=== PATIENT | male | born 1970 | race American Indian/Alaskan Native ===

== ENCOUNTER 2020-04-01 22:00 | Emergency (ER) | payer OTHER | END 2020-04-01 22:10 | disposition left against medical advice (07) | LOC: ED 22:00 | DX: Z53.21 Procedure and treatment not carried out due to patient leaving prior to being seen by health care provider (principal) ==

== ENCOUNTER 2020-04-03 16:31 | Emergency (ER) | payer OTHER ==
[2020-04-03 16:49] VITALS: BP 153/99
--- NOTE | 2020-04-03 17:34 | Emergency Department Report ---
ED Chest Pain HPI - General Chief Complaint: Chest Pain Stated Complaint: CHEST WALL PAIN [id number] Source: patient Mode of arrival: Ambulatory Limitations: No Limitations - History of Present Illness Initial Comments: 49-year-old -Malag[place] male presents to the emergency room complaining of intermittent chest pain for 5 days along with shortness of breath. Patient states that he has has a little bit of pain to his chest. Patient denies any alleviating or aggravating factors. Patient denies any fever chills no nausea no vomiting no diarrhea no loss of taste or smell. Patient denies any trauma. Patient denies any mental health issues such as schizophrenia depression or bipolar. Patient states he does not take any medication and does not have a primary care provider. Patient reports his severity on a scale of 0-10 as 3. Patient thinks his chest discomfort is secondary to smoking cigarettes. Patient smoked a cigarette just prior to triage. MD Complaint: chest pain Onset/Timin -: days(s) Pain Location: substernal, right chest - Related Data Allergies Allergy/AdvReac Type Severity Reaction Status Date / Time No Known Allergies Allergy Unverified 04/03/20 16:46 Heart Score - HEART Score History: Slightly suspicious EKG: Normal Age: 45-65 Risk factors: 1-2 risk factors Troponin: < normal limit HEART Score: 2 ED Review of Systems ROS: Stated complaint: CHEST WALL PAIN [id number] Other details as noted in HPI Comment: All other systems reviewed and negative ED Past Medical Hx - Past Medical History Previous Medical History?: No - Surgical History Past Surgical History?: No - Social History Smoking Status: Current Every Day Smoker Substance Use Type: Alcohol ED Physical Exam - General Limitations: No Limitations General appearance: alert, in no apparent distress - Head Head exam: Present: atraumatic, normocephalic - Eye Eye exam: Present: normal appearance - ENT ENT exam: Present: mucous membranes moist - Neck Neck exam: Present: normal inspection, full ROM - Respiratory Respiratory exam: Present: normal lung sounds bilaterally. Absent: accessory muscle use - Cardiovascular Cardiovascular Exam: Present: tachycardia - GI/Abdominal GI/Abdominal exam: Present: soft, normal bowel sounds - Extremities Exam Extremities exam: Present: normal inspection. Absent: pedal edema - Back Exam Back exam: Present: normal inspection - Neurological Exam Neurological exam: Present: alert, oriented X3, normal gait - Psychiatric Psychiatric exam: Present: normal affect, normal mood - Skin Skin exam: Present: warm, dry, intact, normal color. Absent: rash ED Course Vital Signs 04/03/20 04/03/20 16:46 17:36 Temperature 99.9 F H Pulse Rate 113 H 97 H Respiratory 18 Rate Blood Pressure 153/99 O2 Sat by Pulse 97 100 Oximetry ROBBY score - Robby Score Age > 65: (0) No Aspirin use within the Past 7 Days: (0) No 3 or more CAD Risk Factors: (0) No 2 or more Angina events in past 24 hrs: (0) No Known CAD with more than 50% Stenosis: (0) No Elevated Cardiac Markers: (0) No ST Deviation Greater than 0.5mm: (0) No ROBBY Score: 0 ED Medical Decision Making - Lab Data Result diagrams: 04/03/20 18:09 04/03/20 18:09 - Radiology Data Radiology results: report reviewed Patient: MER GILMORE MR# : [id number] : 1970 Acct:[id number] Age/Sex: 49 / M ADM Date: 04/03/20 Loc: ED Attending Dr: Ordering Physician: SIMIN GARCIA Date of Service: 04/03/20 Procedure(s): XR chest routine 2V Accession Number(s): [id number] cc: SIMIN GARCIA Fluoro Time In Minutes: CHEST PA AND LATERAL VIEWS INDICATION: CHEST PAIN. COMPARISON: None FINDINGS: Support devices: None Heart: Normal Lungs/Pleura: No acute pulmonary or pleural findings. IMPRESSION: 1. No significant abnormality. Signer Name: Roel Diane MD Signed: 04/03/2020 6:04 PM Workstation Name: [id number] Transcribed By: TM Dictated By: Roel Diane MD Electronically Authenticated By: Roel Diane MD Signed Date/Time: 04/03/201803 DD/ 02 TD/TT: - Medical Decision Making 49-year-old -Malagasy male presents to the emergency room complaining of intermittent chest pain for 5 days along with shortness of breath. Patient states that he has has a little bit of pain to his chest. Patient denies any alleviating or aggravating factors. Patient denies any fever chills no nausea no vomiting no diarrhea no loss of taste or smell. Patient denies any trauma. Patient denies any mental health issues such as schizophrenia depression or bipolar. Patient states he does not take any medication and does not have a primary care provider. Patient reports his severity on a scale of 1-10 as 3.Patient thinks his chest discomfort is secondary to smoking cigarettes. Patient smoked a cigarette just prior to triage.. Critical care attestation.: If time is entered above; I have spent that time in minutes in the direct care of this critically ill patient, excluding procedure time. ED Disposition Clinical Impression: Chest pain Qualifiers: Chest pain type: unspecified Qualified Code(s): R07.9 - Chest pain, unspecified Disposition: ELOPED Is pt being admited?: No Does the pt Need Aspirin: No Condition: Stable Instructions: Nonspecific Chest Pain, Adult, Chest Pain (ED)
--- NOTE | 2020-04-03 18:08 | XRay Report ---
CHEST PA AND LATERAL VIEWS INDICATION: CHEST PAIN. COMPARISON: None FINDINGS: Support devices: None Heart: Normal Lungs/Pleura: No acute pulmonary or pleural findings. IMPRESSION: 1. No significant abnormality. Signer Name: Roel Diane MD Signed: 04/03/2020 6:04 PM Workstation Name: [id number]
[2020-04-03 18:32] LABS: Basophils % (Auto) 0.6 % (0.0-1.8); Eosinophils % (Auto) 0.2 % (0.0-4.3); Hematocrit 44.5 % (35.5-45.6); Lymphocytes # (Auto) 2.1 K/mm3 (1.2-5.4); Lymphocytes % (Auto) 30.5 % (13.4-35.0); Mean Corpuscular HGB Conc 34 % (32-34); Mean Corpuscular Volume 92 fl (84-94); Monocytes # (Auto) 0.5 K/mm3 (0.0-0.8); Monocytes % (Auto) 7.4 % (0.0-7.3); Red Blood Count 4.84 M/mm3 (3.65-5.03); Red Cell Distribution Width 12.6 % (13.2-15.2)
[2020-04-03 18:48] LABS: Alanine Aminotransferase 35 units/L (7-56); BUN/Creatinine Ratio 15; Blood Urea Nitrogen 12 mg/dL (9-20); Calcium 9.6 mg/dL (8.4-10.2); Hemolysis Index 11
[2020-04-03] MEDS ORDERED: POTASSIUM CHLORIDE ER 20 MEQ TAB PO ONE (19:26)
[2020-04-03 19:30] LABS: Platelet Count 116 K/mm3 (140-440)
== END 2020-04-03 21:05 | disposition left against medical advice (07) ==
LOC: ED 16:31
DX: R07.89 Other chest pain (principal); R06.02 Shortness of breath; F17.200 Nicotine dependence, unspecified, uncomplicated
CPT/HCPCS: 36415; 71046; 80053; 84484; 85025; 93005; 93010

== ENCOUNTER 2020-04-22 09:41 | Emergency (ER) | payer OTHER ==
[2020-04-22] MEDS ORDERED: SODIUM CHLORIDE 0.9% 1000 ML 1,000 ML IV ONE (09:45)
--- NOTE | 2020-04-22 09:51 | Emergency Department Report ---
ED Altered Mental Status HPI - General Stated Complaint: UNRESPONSIVE PUI?: No Time Seen by Provider: 04/22/20 09:42 Source: patient, EMS Mode of arrival: Ambulatory Limitations: No Limitations - History of Present Illness Initial Comments: CC: altered mental status hPI: This is s 49 yo male with hx of bipolar disorder and schizophrenia who presents with decreased level of responsiveness. Patient was normal last evening according to relatives at home. EMS found patient to be unconscious but breathing spontaneously. Once patient was loaded into the ambulance, patient awakened and stated that he had chest pain. Patient had normal blood glucose. Only medications sertraline and omeprazole. Patient does answer yes/no questions. He was able to tell me that his name is Varghese. He currently appears depressed but appropriate. I attempted to speak with mother per phone for additional information. I was unable to contact mother. Complaint: decreased responsiveness -: This morning Severity: mild Consistency of Symptoms: waxing and waning Context: unknown Associated Symptoms: chest pain - Related Data Home Medications Medication Instructions Recorded Confirmed Last Taken ARIPiprazole [Abilify] 15 mg PO DAILY 04/22/20 04/22/20 Unknown Sertraline [Zoloft] 50 mg PO QDAY 04/22/20 04/22/20 Unknown Allergies Allergy/AdvReac Type Severity Reaction Status Date / Time No Known Allergies Allergy Verified 04/22/20 09:55 ED Review of Systems ROS: Stated complaint: UNRESPONSIVE Other details as noted in HPI Comment: All other systems reviewed and negative Constitutional: denies: fever Respiratory: denies: cough, shortness of breath Cardiovascular: chest pain Gastrointestinal: denies: abdominal pain, nausea, vomiting Psychiatric: depression ED Past Medical Hx - Past Medical History Previous Medical History?: Yes Additional medical history: Bipolar disorder, schizophrenia - Medications Home Medications: Home Medications Medication Instructions Recorded Confirmed Last Taken Type ARIPiprazole [Abilify] 15 mg PO DAILY 04/22/20 04/22/20 Unknown History Sertraline [Zoloft] 50 mg PO QDAY 04/22/20 04/22/20 Unknown History ED Physical Exam - General General appearance: alert, in no apparent distress, other (Will make eye contact, will nod Yes no, was able to give his name) - Head Head exam: Present: atraumatic, normocephalic - Eye Eye exam: Present: normal appearance - ENT ENT exam: Present: mucous membranes moist - Neck Neck exam: Present: normal inspection, full ROM - Respiratory Respiratory exam: Present: normal lung sounds bilaterally. Absent: respiratory distress, wheezes, rales, rhonchi - Cardiovascular Cardiovascular Exam: Present: regular rate, normal rhythm, normal heart sounds. Absent: systolic murmur, diastolic murmur, rubs, gallop - GI/Abdominal GI/Abdominal exam: Present: soft, normal bowel sounds. Absent: distended, tenderness, guarding, rebound - Rectal Rectal exam: Present: deferred - Extremities Exam Extremities exam: Present: normal inspection - Back Exam Back exam: Present: normal inspection - Neurological Exam Neurological exam: Present: alert, oriented X3 - Psychiatric Psychiatric exam: Present: depressed, flat affect - Skin Skin exam: Present: warm, dry, intact, normal color. Absent: rash ED Course Vital Signs 04/22/20 04/22/20 04/22/20 10:03 10:40 11:38 Temperature 98.8 F Pulse Rate 57 L 56 L 53 L Respiratory 15 Rate Blood Pressure 112/64 Blood Pressure 130/77 129/69 [Left] O2 Sat by Pulse 100 99 100 Oximetry 04/22/20 12:47 Temperature Pulse Rate 53 L Respiratory Rate Blood Pressure Blood Pressure 124/72 [Left] O2 Sat by Pulse 100 Oximetry - Lab Data Result diagrams: 04/22/20 10:23 04/22/20 10:23 Lab Results 04/22/20 04/22/20 04/22/20 Range/Units 09:57 09:57 10:23 WBC 4.1 L (4.5-11.0) K/mm3 RBC 4.96 (3.65-5.03) M/mm3 Hgb 15.3 H (11.8-15.2) gm/dl Hct 45.5 (35.5-45.6) % MCV 92 (84-94) fl MCH 31 (28-32) pg MCHC 34 (32-34) % RDW 12.7 L (13.2-15.2) % Plt Count 137 L (140-440) K/mm3 Lymph % (Auto) 38.5 H (13.4-35.0) % [place] % (Auto) 5.0 (0.0-7.3) % Eos % (Auto) 3.2 (0.0-4.3) % Baso % (Auto) 1.4 (0.0-1.8) % Lymph # (Auto) 1.6 (1.2-5.4) K/mm3 [place] # (Auto) 0.2 (0.0-0.8) K/mm3 Eos # (Auto) 0.1 (0.0-0.4) K/mm3 Baso # (Auto) 0.1 (0.0-0.1) K/mm3 Seg Neutrophils % 51.9 (40.0-70.0) % Seg Neutrophils # 2.1 (1.8-7.7) K/mm3 Sodium (137-145) mmol/L Potassium (3.6-5.0) mmol/L Chloride (98-107) mmol/L Carbon Dioxide (22-30) mmol/L Anion Gap mmol/L BUN (9-20) mg/dL Creatinine (0.8-1.3) mg/dL Estimated GFR ml/min BUN/Creatinine Ratio % Glucose (75-100) mg/dL Calcium (8.4-10.2) mg/dL Total Bilirubin (0.1-1.2) mg/dL AST (5-40) units/L ALT (7-56) units/L Alkaline Phosphatase (35-129) units/L Troponin T (0.00-0.029) ng/mL Total Protein (6.3-8.2) g/dL Albumin (3.9-5) g/dL Albumin/Globulin Ratio % Urine Color Yellow (Yellow) Urine Turbidity Clear (Clear) Urine pH 7.0 (5.0-7.0) Ur Specific [place] 1.010 (1.003-1.030) Urine Protein <15 mg/dl (Negative) mg/dL Urine Glucose (UA) Neg (Negative) mg/dL Urine Ketones Neg (Negative) mg/dL Urine Blood Neg (Negative) Urine Nitrite Neg (Negative) Urine Bilirubin Neg (Negative) Urine Urobilinogen 2.0 (<2.0) mg/dL Ur Leukocyte Esterase Neg (Negative) Urine WBC (Auto) 1.0 (0.0-6.0) /HPF Urine RBC (Auto) < 182.0 (0.0-6.0) /HPF Salicylates (2.8-20.0) mg/dL Urine Opiates Screen Negative Urine Methadone Screen Negative Acetaminophen (10.0-30.0) ug/mL Ur Barbiturates Screen Negative Ur Phencyclidine Scrn Negative Ur Amphetamines Screen Negative U Benzodiazepines Scrn Negative Urine Cocaine Screen Negative U Marijuana (THC) Screen Negative Drugs of Abuse Note Disclamer Plasma/Serum Alcohol (0-0.07) % 04/22/20 04/22/20 04/22/20 Range/Units 10:23 10:23 10:23 WBC (4.5-11.0) K/mm3 RBC (3.65-5.03) M/mm3 Hgb (11.8-15.2) gm/dl Hct (35.5-45.6) % MCV (84-94) fl MCH (28-32) pg MCHC (32-34) % RDW (13.2-15.2) % Plt Count (140-440) K/mm3 Lymph % (Auto) (13.4-35.0) % [place] % (Auto) (0.0-7.3) % Eos % (Auto) (0.0-4.3) % Baso % (Auto) (0.0-1.8) % Lymph # (Auto) (1.2-5.4) K/mm3 [place] # (Auto) (0.0-0.8) K/mm3 Eos # (Auto) (0.0-0.4) K/mm3 Baso # (Auto) (0.0-0.1) K/mm3 Seg Neutrophils % (40.0-70.0) % Seg Neutrophils # (1.8-7.7) K/mm3 Sodium 141 (137-145) mmol/L Potassium 4.3 (3.6-5.0) mmol/L Chloride 104.2 (98-107) mmol/L Carbon Dioxide 30 (22-30) mmol/L Anion Gap 11 mmol/L BUN 8 L (9-20) mg/dL Creatinine 0.9 (0.8-1.3) mg/dL Estimated GFR > 60 ml/min BUN/Creatinine Ratio 9 % Glucose 99 (75-100) mg/dL Calcium 9.3 (8.4-10.2) mg/dL Total Bilirubin 1.20 (0.1-1.2) mg/dL AST 16 (5-40) units/L ALT 14 (7-56) units/L Alkaline Phosphatase 42 (35-129) units/L Troponin T (0.00-0.029) ng/mL Total Protein 6.2 L (6.3-8.2) g/dL Albumin 4.1 (3.9-5) g/dL Albumin/Globulin Ratio 2.0 % Urine Color (Yellow) Urine Turbidity (Clear) Urine pH (5.0-7.0) Ur Specific [place] (1.003-1.030) Urine Protein (Negative) mg/dL Urine Glucose (UA) (Negative) mg/dL Urine Ketones (Negative) mg/dL Urine Blood (Negative) Urine Nitrite (Negative) Urine Bilirubin (Negative) Urine Urobilinogen (<2.0) mg/dL Ur Leukocyte Esterase (Negative) Urine WBC (Auto) (0.0-6.0) /HPF Urine RBC (Auto) (0.0-6.0) /HPF Salicylates < 0.3 L (2.8-20.0) mg/dL Urine Opiates Screen Urine Methadone Screen Acetaminophen 5.0 L (10.0-30.0) ug/mL Ur Barbiturates Screen Ur Phencyclidine Scrn Ur Amphetamines Screen U Benzodiazepines Scrn Urine Cocaine Screen U Marijuana (THC) Screen Drugs of Abuse Note Plasma/Serum Alcohol (0-0.07) % 04/22/20 04/22/20 04/22/20 Range/Units 10:23 10:23 12:31 WBC (4.5-11.0) K/mm3 RBC (3.65-5.03) M/mm3 Hgb (11.8-15.2) gm/dl Hct (35.5-45.6) % MCV (84-94) fl MCH (28-32) pg MCHC (32-34) % RDW (13.2-15.2) % Plt Count (140-440) K/mm3 Lymph % (Auto) (13.4-35.0) % [place] % (Auto) (0.0-7.3) % Eos % (Auto) (0.0-4.3) % Baso % (Auto) (0.0-1.8) % Lymph # (Auto) (1.2-5.4) K/mm3 [place] # (Auto) (0.0-0.8) K/mm3 Eos # (Auto) (0.0-0.4) K/mm3 Baso # (Auto) (0.0-0.1) K/mm3 Seg Neutrophils % (40.0-70.0) % Seg Neutrophils # (1.8-7.7) K/mm3 Sodium (137-145) mmol/L Potassium (3.6-5.0) mmol/L Chloride (98-107) mmol/L Carbon Dioxide (22-30) mmol/L Anion Gap mmol/L BUN (9-20) mg/dL Creatinine (0.8-1.3) mg/dL Estimated GFR ml/min BUN/Creatinine Ratio % Glucose (75-100) mg/dL Calcium (8.4-10.2) mg/dL Total Bilirubin (0.1-1.2) mg/dL AST (5-40) units/L ALT (7-56) units/L Alkaline Phosphatase (35-129) units/L Troponin T < 0.010 < 0.010 (0.00-0.029) ng/mL Total Protein (6.3-8.2) g/dL Albumin (3.9-5) g/dL Albumin/Globulin Ratio % Urine Color (Yellow) Urine Turbidity (Clear) Urine pH (5.0-7.0) Ur Specific [place] (1.003-1.030) Urine Protein (Negative) mg/dL Urine Glucose (UA) (Negative) mg/dL Urine Ketones (Negative) mg/dL Urine Blood (Negative) Urine Nitrite (Negative) Urine Bilirubin (Negative) Urine Urobilinogen (<2.0) mg/dL Ur Leukocyte Esterase (Negative) Urine WBC (Auto) (0.0-6.0) /HPF Urine RBC (Auto) (0.0-6.0) /HPF Salicylates (2.8-20.0) mg/dL Urine Opiates Screen Urine Methadone Screen Acetaminophen (10.0-30.0) ug/mL Ur Barbiturates Screen Ur Phencyclidine Scrn Ur Amphetamines Screen U Benzodiazepines Scrn Urine Cocaine Screen U Marijuana (THC) Screen Drugs of Abuse Note Plasma/Serum Alcohol < 0.01 (0-0.07) % - EKG Data -: EKG Interpreted by Ms EKG shows normal: sinus rhythm, axis, intervals, QRS complexes, ST-T waves Rate: normal Interpretation: normal EKG 04/22/20 09:50 EKG obtained 0946 EKG interpreted by me Normal sinus rhythm normal rate normal axis normal intervals no ST elevation no ST-T signs of ischemia normal EKG - Radiology Data Radiology results: report reviewed - Medical Decision Making 1. Altered mental status: Patient was oriented and alert upon arrival. He stated that "everyone gets depressed sometimes". He did not speak to bill recapitulation clerk. However he gave a full history to me. He states that his mother thinks he is "crazy". Patient has been in his normal state of health. He has been taking his medications. He does have employment. He denies suicidal homicidal ideation. Denies hallucinations. He is quite articulate and insightful. 2. Patient did admit to chest pain. He said he feels like gas. Mild in nature. No radiation. No association with movement or inspiration. EKG within normal limits. Troponin x2 -. I do not suspect acute coronary syndrome. However I did fax referral for outpatient cardiology evaluation. I gave patient referral to asphalt heater tender. Critical care attestation.: If time is entered above; I have spent that time in minutes in the direct care of this critically ill patient, excluding procedure time. ED Disposition Clinical Impression: Chest pain, Bipolar disorder Disposition: DC-01 TO HOME OR SELFCARE Is pt being admited?: No Does the pt Need Aspirin: No Condition: Stable Instructions: Nonspecific Chest Pain, Adult Referrals: MARGARITO DRAKE MD [Staff Physician] - 3-5 Days Heart Score - HEART Score History: Slightly suspicious EKG: Normal Age: 45-65 Risk factors: No known risk factors Troponin: < normal limit HEART Score: 1
[2020-04-22 10:31] LABS: Amphetamine Screen,Urine Negative; Benzodiazepines Screen,Urine Negative; Cannabinoid Screen,Urine Negative; Cocaine Screen,Urine Negative; Methadone Screen,Urine Negative; Opiate Screen,Urine Negative
[2020-04-22 10:35] LABS: Bilirubin,Urine NEG (Negative); Blood,Urine NEG (Negative); Color,Urine Yellow (Yellow); Protein,Urine <15 mg/dL mg/dL (Negative)
[2020-04-22 10:36] LABS: Basophils # (Auto) 0.1 K/mm3 (0.0-0.1); Basophils % (Auto) 1.4 % (0.0-1.8); Eosinophils # (Auto) 0.1 K/mm3 (0.0-0.4); Eosinophils % (Auto) 3.2 % (0.0-4.3); Hematocrit 45.5 % (35.5-45.6); Hemoglobin 15.3 gm/dl (11.8-15.2); Lymphocytes # (Auto) 1.6 K/mm3 (1.2-5.4); Lymphocytes % (Auto) 38.5 % (13.4-35.0); Mean Corpuscular HGB Conc 34 % (32-34); Mean Corpuscular Volume 92 fl (84-94); Monocytes # (Auto) 0.2 K/mm3 (0.0-0.8); Red Blood Count 4.96 M/mm3 (3.65-5.03); Red Cell Distribution Width 12.7 % (13.2-15.2)
[2020-04-22 10:38] LABS: RBC,Urine < 182.0 /HPF (0.0-6.0)
[2020-04-22 10:38] LABS: Platelet Count 137 K/mm3 (140-440)
--- NOTE | 2020-04-22 10:47 | XRay Report ---
XR chest 1V ap INDICATION / CLINICAL INFORMATION: Medical Clearance Psych. COMPARISON: None available. FINDINGS: SUPPORT DEVICES: None. HEART /PULMONARY VASCULATURE: No significant abnormality. LUNGS / PLEURA: No significant pulmonary or pleural abnormality. No pneumothorax. ADDITIONAL FINDINGS: No significant additional findings. IMPRESSION: 1. No acute findings. Signer Name: Tanmay Huff MD Signed: 04/22/2020 10:42 AM Workstation Name: [id number]
[2020-04-22 11:42] LABS: Alanine Aminotransferase 14 units/L (7-56); Albumin 4.1 g/dL (3.9-5); BUN/Creatinine Ratio 9; Blood Urea Nitrogen 8 mg/dL (9-20); Calcium 9.3 mg/dL (8.4-10.2); Hemolysis Index 11
[2020-04-22 13:58] VITALS: BP 121/62
== END 2020-04-22 13:58 | disposition home or self-care (01) ==
LOC: MERGE 09:41 → ED 09:41
DX: F25.0 Schizoaffective disorder, bipolar type (principal); R07.9 Chest pain, unspecified; Z79.899 Other long term (current) drug therapy
CPT/HCPCS: 36415; 71045; 80053; 80307; 81001; 84484; 85025; 93005; 96360; 99284; J7030; 80320; G0480

== ENCOUNTER → 2020-04-22 | Emergency (ER) | payer OTHER | LOC: ED 10:00 | DX: R55 Syncope and collapse (principal); Z53.21 Procedure and treatment not carried out due to patient leaving prior to being seen by health care provider ==